=== PATIENT | female | born 1965 | race African-American/Black ===

== ENCOUNTER 2016-08-13 10:31 | Emergency (ER) | payer OTHER ==
[2016-08-13 10:39] VITALS: BP 130/85; PULSE 76; TEMP 98.8; BMI 37.3
[2016-08-13] MEDS ORDERED: KETOROLAC TROMETHAMINE 60 MG/2 ML VIAL IM ONE (12:42)
[2016-08-13] MEDS ORDERED: KETOROLAC TROMETHAMINE 60 MG/2 ML VIAL ONE (13:01)
--- NOTE | 2016-08-13 13:02 | PDOC ---
History of Present Illness - General Chief Complaint: Pain Stated Complaint: RT SIDE PAIN Time Seen by Provider: 08/13/16 11:59 History Source: Patient Exam Limitations: No Limitations - History of Present Illness Initial Comments: 08/13/16 12:58 50 yr female obese with c/o pain for 2 months to right lower back radiates across to flank worse with movement Pt denies fever, no urination or constipation complaints. Pt denies nvd. Pt denies trauma, has seen her PMD in the past for same told it was a muscle spasm. Pt states advil does not help the pain . Pain Location: reports: back Modifying Factors: improves with: None Loss of Consciousness: no loss of consciousness Associated Symptoms (Fall): denies symptoms Past History - Past Medical History Allergies/Adverse Reactions: Allergies Allergy/AdvReac Type Severity Reaction Status Date / Time No Known Allergies Allergy Verified 05/07/16 19:36 Home Medications: Ambulatory Orders Gabapentin [Neurontin] 300 mg PO BID 02/14/16 Meloxicam [Mobic] 15 mg PO DAILY 02/14/16 Ibuprofen [Motrin -] 600 mg PO QID PRN #30 tablet 05/08/16 Cyclobenzaprine HCl [Flexeril -] 10 mg PO TID PRN #12 tablet 08/13/16 Anemia: No Asthma: No Cancer: No Cardiac Disorders: No CVA: No COPD: No Other medical history: left sciatica , obesity - Surgical History Cholecystectomy: Yes Orthopedic Surgery: Yes (herniated discs with disectomy) - Immunization History Immunization Up to Date: Yes - Psycho/Social/Smoking Cessation Hx Anxiety: No Suicidal Ideation: No Smoking Status: No Smoking History: Never smoked Have you smoked in the past 12 months: No Number of Cigarettes Smoked Daily: 0 Information on smoking cessation initiated: No Hx Alcohol Use: No Drug/Substance Use Hx: No Substance Use Type: None Trauma Specific PMHX - Complaint Specific PMHX Arthritis: No Back Injury: Yes (years ago) Neck Injury: No Hx Sacro Iliac Joint Dysfunction: No Review of Systems - Review of Systems Able to Perform ROS?: Yes Is the patient limited Yi proficient: No Constitutional: No: Symptoms Reported HEENTM: No: Symptoms Reported Respiratory: No: Symptoms reported Cardiac (ROS): No: Symptoms Reported ABD/GI: No: Symptoms Reported : No: Symptoms Reported Musculoskeletal: Yes: Symptoms Reported, Back Pain *Physical Exam - Vital Signs Last Vital Signs Temp Pulse Resp BP Pulse Ox 98.8 F 76 20 130/85 98 08/13/16 10:33 08/13/16 10:33 08/13/16 10:33 08/13/16 10:33 08/13/16 10:33 - Physical Exam General Appearance: Yes: Nourished, Appropriately Dressed HEENT: positive: EOMI, EL, Normal ENT Inspection, TMs Normal, Pharynx Normal Neck: positive: Supple. negative: Tender Respiratory/Chest: positive: Lungs Clear, Normal Breath Sounds. negative: Chest Tender Cardiovascular: positive: Regular Rhythm, Regular Rate Gastrointestinal/Abdominal: positive: Normal Bowel Sounds, Soft. negative: Tender Musculoskeletal: positive: Normal Inspection, Decreased Range of Motion (pain reproduced with bending forward ), Vertebral Tenderness (lumbar spine ). negative: CVA Tenderness, CVA Tenderness (R), CVA Tenderness (L), Muscle Spasm Extremity: positive: Normal Capillary Refill, Normal Inspection ED Treatment Course - RADIOLOGY Radiology Studies Ordered: Category Date Time Status SPINE-LUMBAR ONLY [RAD] Stat Radiology 08/13/16 12:16 Taken SPINE-THORACIC [RAD] Stat Radiology 08/13/16 12:16 Taken Medical Decision Making - Medical Decision Making 08/13/16 14:29 cc: 1-2 months pain to right side low back to flank no nvd no urine or bowel dysfuntion pt has menses started today pt has seen [facility] states pain worse with moving 08/13/16 16:46 pt states pain has improved after toradol. Pt walking with steady gait no distress. pt will f/u with her PMD as discussed. *DC/Admit/Observation/Transfer Diagnosis at time of Disposition: Back pain with radiation - Discharge Dispostion Disposition: HOME Condition at time of disposition: Good - Prescriptions Prescriptions: Cyclobenzaprine HCl [Flexeril -] 10 mg PO TID PRN #12 tablet PRN Reason: Muscle Spasms - Referrals Referrals: Aramis Olmos MD [Primary Care Provider] - - Patient Instructions Additional Instructions: follow with your medical doctor next week for follow up take your Mobic for pain take flexeril for any spasm do not drive while taking flexeril or drink any alcohol apply a warm heating pad to the right side of back every 3hrs for 20 minutes return to ER for any worsening symptoms.
[2016-08-13 14:03] LABS: URINE APPEARANCE SLCLOUDY; URINE BILIRUBIN NEGATIVE (NEGATIVE); URINE COLOR YELLOW; URINE GLUCOSE (UA) NEGATIVE (NEGATIVE); URINE KETONE NEGATIVE (NEGATIVE); URINE LEUK ESTERASE NEGATIVE (NEGATIVE); URINE NITRITE NEGATIVE (NEGATIVE); URINE UROBILINOGEN NEGATIVE E.U./dl (0.2-1.0)
[2016-08-13 14:12] LABS: URINE BLOOD 3+ (NEGATIVE); URINE PROTEIN 1+ (NEGATIVE)
[2016-08-13 14:17] LABS: URINE MUCUS MANY; URINE RBC 114 /hpf (0-3); URINE WBC 6 /hpf (3-5)
== END 2016-08-13 14:36 | disposition home or self-care (01) ==
LOC: JERFT 10:31
PROC: 3E0233Z Introduction of Anti-inflammatory into Muscle, Percutaneous Approach (ICD-10-PCS; principal; 2016-08-13)
DX: M54.89 Other dorsalgia (principal)
CPT/HCPCS: 72070-TC; 72100-TC; 81003; 81015; 96372; 99281-25

== ENCOUNTER 2016-11-02 08:34 | Emergency (ER) | payer OTHER ==
[2016-11-02 08:49] VITALS: BP 108/78; PULSE 96; TEMP 98.3; BMI 37.3
[2016-11-02] MEDS ORDERED: IBUPROFEN 600 MG TABLET (FP) PO ONE ×2 (09:13→09:18)
--- NOTE | 2016-11-02 09:20 | PDOC ---
History of Present Illness - General Chief Complaint: Cold Symptoms Stated Complaint: HEADACHE, CHILLS, BACK PAIN Time Seen by Provider: 11/02/16 08:59 History Source: Patient Exam Limitations: No Limitations - History of Present Illness Initial Comments: 11/02/16 09:17 51 yr female with c/o "body aches" nasal congestion and headache for 3 days. Pt states her daughter is sick at home with cold symptoms. Pt denies fever, no abd pain or diarrhea. Pt has some urinary frequency. Pt also c/o left lower back to leg pain, this is chronic pt states. 11/02/16 09:21 Associated Symptoms: denies: denies symptoms, cough Past History - Past Medical History Allergies/Adverse Reactions: Allergies Allergy/AdvReac Type Severity Reaction Status Date / Time No Known Allergies Allergy Verified 11/02/16 08:45 Home Medications: Ambulatory Orders Cephalexin [Keflex] 500 mg PO BID #6 capsule 11/02/16 Anemia: No Asthma: No Cancer: No Cardiac Disorders: No CVA: No COPD: No Other medical history: none - Surgical History Cholecystectomy: Yes Orthopedic Surgery: Yes (herniated discs with disectomy) - Immunization History Immunization Up to Date: Yes - Psycho/Social/Smoking Cessation Hx Anxiety: No Suicidal Ideation: No Smoking Status: No Smoking History: Never smoked Have you smoked in the past 12 months: No Number of Cigarettes Smoked Daily: 0 Information on smoking cessation initiated: No Hx Alcohol Use: No Drug/Substance Use Hx: No Substance Use Type: None Review of Systems - Review of Systems Able to Perform ROS?: Yes Is the patient limited Chadian proficient: No Constitutional: No: Symptoms Reported HEENTM: Yes: Nose Congestion Respiratory: No: Symptoms reported Cardiac (ROS): No: Symptoms Reported ABD/GI: No: Symptoms Reported : Yes: Other (frequency ). No: Symptoms Reported Musculoskeletal: Yes: Back Pain Integumentary: No: Symptoms Reported Neurological: No: Symptoms reported *Physical Exam - Vital Signs Last Vital Signs Temp Pulse Resp BP Pulse Ox 98.3 F 96 H 18 108/78 99 11/02/16 08:46 11/02/16 08:46 11/02/16 08:46 11/02/16 08:46 11/02/16 08:46 - Physical Exam General Appearance: Yes: Nourished, Appropriately Dressed HEENT: positive: EOMI, EL, Normal ENT Inspection, TMs Normal, Pharynx Normal Neck: positive: Supple. negative: Tender Respiratory/Chest: positive: Lungs Clear, Normal Breath Sounds. negative: Chest Tender Cardiovascular: positive: Regular Rhythm, Regular Rate Gastrointestinal/Abdominal: positive: Normal Bowel Sounds, Soft Musculoskeletal: positive: Normal Inspection Extremity: positive: Normal Capillary Refill, Normal Inspection, Normal Range of Motion. negative: Tender Integumentary: positive: Normal Color, Dry, Warm Neurologic: positive: Fully Oriented, Alert, Normal Mood/Affect, Normal Response , Motor Strength 5/5 Medical Decision Making - Medical Decision Making 11/02/16 09:23 cc: body aches, headache nasal congestion, chronic back and leg pain no meds taken today will r/o flu motrin for pain r/o UTI vitals are stable pt is non toxic *DC/Admit/Observation/Transfer Diagnosis at time of Disposition: Urinary tract infection Qualifiers: Urinary tract infection type: acute cystitis Hematuria presence: without hematuria Qualified Code(s): N30.00 - Acute cystitis without hematuria - Discharge Dispostion Disposition: HOME Condition at time of disposition: Good - Prescriptions Prescriptions: Cephalexin [Keflex] 500 mg PO BID #6 capsule - Referrals Referrals: Aramis Olmos MD [Primary Care Provider] - - Patient Instructions Additional Instructions: drink at least 1-2 liters of water a day increase your vitamin C and zinc to boost immune system (over the counter Roya C or regular vitamins) take the antibiotics for urine infection as prescribed take motrin (ibuprofen, advil ) for any pain or fever follow with your doctor for follow up in 5-7 days if not feeling better return to ER for any worsening symptoms
[2016-11-02 09:58] LABS: URINE APPEARANCE SLCLOUDY; URINE BILIRUBIN NEGATIVE (NEGATIVE); URINE BLOOD NEGATIVE (NEGATIVE); URINE COLOR LTYELLOW; URINE GLUCOSE (UA) NEGATIVE (NEGATIVE); URINE KETONE NEGATIVE (NEGATIVE); URINE NITRITE NEGATIVE (NEGATIVE); URINE PROTEIN NEGATIVE (NEGATIVE); URINE UROBILINOGEN NEGATIVE E.U./dl (0.2-1.0)
[2016-11-02 10:02] LABS: URINE LEUK ESTERASE 3+ (NEGATIVE)
[2016-11-02 10:15] LABS: URINE MUCUS RARE; URINE RBC 12 /hpf (0-3); URINE WBC 1 /hpf (3-5)
== END 2016-11-02 10:26 | disposition home or self-care (01) ==
LOC: JERFT 08:34
DX: N30.00 Acute cystitis without hematuria (principal)
CPT/HCPCS: 81003; 81015; 87804; 99281-25

== ENCOUNTER 2017-02-26 18:42 | Emergency (ER) | payer OTHER ==
[2017-02-26 19:22] VITALS: BP 124/74; PULSE 97; TEMP 98.6; BMI 37.3
[2017-02-26] MEDS ORDERED: KETOROLAC TROMETHAMINE 60 MG/2 ML VIAL ONE (19:54)
--- NOTE | 2017-02-26 19:59 | PDOC ---
History of Present Illness - General Chief Complaint: Pain Stated Complaint: RT KNEE PAIN Time Seen by Provider: 02/26/17 19:32 History Source: Patient Exam Limitations: No Limitations - History of Present Illness Initial Comments: 02/26/17 19:53 complaints of right knee pain that's progressively worsening over 1 week. States has chronic back pain with sciatica and nerve involvement of left leg. States has been limping for many many years. States right knee had onset of pain with some arthritic-type changes over the past few weeks but this week has progressively become worse. Denies any exercise changes, trauma, any shoewear changes. Is in pain management with Dr. Crocekr takes gabapentin and has Percocet as needed but has not taken any medication for relief of this pain. Denies fever , swelling redness or other illness 02/26/17 21:46 02/26/17 21:48 Occurred: reports: just prior to arrival Severity: reports: mild Pain Location: reports: lower extremity (right knee ) Method of Injury: Yes: unknown Modifying Factors: improves with: None Loss of Consciousness: no loss of consciousness Associated Symptoms (Fall): denies symptoms Past History - Travel Traveled outside of the country in the last 30 days: No Close contact w/someone who was outside of country & ill: No - Past Medical History Allergies/Adverse Reactions: Allergies Allergy/AdvReac Type Severity Reaction Status Date / Time No Known Allergies Allergy Verified 02/26/17 19:22 Home Medications: Ambulatory Orders Gabapentin 300 mg PO BID 02/26/17 Naproxen [Naprosyn -] 500 mg PO BID #20 tablet 02/26/17 Anemia: No Asthma: No Cancer: No Cardiac Disorders: No CVA: No COPD: No - Surgical History Cholecystectomy: Yes Orthopedic Surgery: Yes (herniated discs with disectomy) - Immunization History Immunization Up to Date: Yes - Psycho/Social/Smoking Cessation Hx Anxiety: No Suicidal Ideation: No Smoking Status: No Smoking History: Never smoked Have you smoked in the past 12 months: No Number of Cigarettes Smoked Daily: 0 Hx Alcohol Use: No Drug/Substance Use Hx: No Substance Use Type: None Trauma Specific PMHX - Complaint Specific PMHX Arthritis: No Back Injury: Yes (years ago) Neck Injury: No Hx Sacro Iliac Joint Dysfunction: No Review of Systems - Review of Systems Able to Perform ROS?: Yes Is the patient limited Vietnamese proficient: Yes Constitutional: Yes: Symptoms Reported, See HPI. No: Fever, Malaise HEENTM: Yes: See HPI. No: Symptoms Reported Musculoskeletal: Yes: Symptoms Reported, See HPI, Joint Pain, Joint Swelling Integumentary: Yes: Symptoms Reported, See HPI Neurological: No: Symptoms reported All Other Systems: Reviewed and Negative *Physical Exam - Vital Signs Last Vital Signs Temp Pulse Resp BP Pulse Ox 98.6 F 97 H 18 124/74 99 02/26/17 19:19 02/26/17 19:19 02/26/17 19:19 02/26/17 19:19 02/26/17 19:19 - Physical Exam General Appearance: Yes: Nourished, Appropriately Dressed, Apparent Distress HEENT: positive: EL, Normal ENT Inspection, TMs Normal, Pharynx Normal Neck: positive: Supple. negative: Tender Respiratory/Chest: positive: Lungs Clear Extremity: positive: Normal Capillary Refill, Normal Inspection. negative: Normal Range of Motion (limited range of motion with some tenderness produced with severe flexion. Has no true medial or lateral instability or tenderness, some mild posterior fossa tenderness. Unable to examine anterior drawer sign is patient is guarding. 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 Patient encouraged to use knee immobilizer, elevate and ice, use NSAIDs for anti-inflammation and pain relief and follow-up with orthopedist first thing next week for further evaluation and possible other testing. *DC/Admit/Observation/Transfer Diagnosis at time of Disposition: Strain of right knee Qualifiers: Encounter type: initial encounter Qualified Code(s): S86.911A - Strain of unspecified muscle(s) and tendon(s) at lower leg level, right leg, initial encounter - Discharge Dispostion Disposition: HOME Condition at time of disposition: Stable Admit: No - Prescriptions Prescriptions: Naproxen [Naprosyn -] 500 mg PO BID #20 tablet - Referrals Referrals: Aramis Olmos MD [Primary Care Provider] - Dariusz Viera MD [Staff Physician] - - Patient Instructions Printed Discharge Instructions: DI for Knee Sprain Additional Instructions: Rest, ice to area on and off for 15 minutes 4-6 times a day Avoid heavy lifting or exercise until pain and swelling is resolved or until further directed Keep area highly elevated to reduce swelling Use splints/Jose Juan wrap as directed Followup with orthopedist in one to 2 days if not improving, if significantly improved may wait one week for followup with orthopedist May use ibuprofen 2-200 mg tablets every 6 hours as needed for pain - Post Discharge Activity Work/School Note: Back to Work
== END 2017-02-26 20:09 | disposition home or self-care (01) ==
LOC: JER 18:42 → JERFT 18:42
PROC: 2W3QXYZ Immobilization of Right Lower Leg using Other Device (ICD-10-PCS; principal; 2017-02-26)
DX: S86.911A Strain of unspecified muscle(s) and tendon(s) at lower leg level, right leg, initial encounter (principal); X58.XXXA Exposure to other specified factors, initial encounter; Y93.89 Activity, other specified; Y92.89 Other specified places as the place of occurrence of the external cause
CPT/HCPCS: 29530; 99281-25

== ENCOUNTER 2019-02-20 15:11 | Emergency (ER) | payer SELFPAY ==
--- NOTE | 2019-02-20 15:23 | PDOC ---
Rapid Medical Evaluation Medical Evaluation: Allergies Allergy/AdvReac Type Severity Reaction Status Date / Time No Known Allergies Allergy Verified 02/26/17 19:22 02/20/19 15:13 I have performed a brief in-person evaluation of this patient. The patient presents with a chief complaint of:Lower back pain radiating to LLE , h/o herniated discs to LS spine, sciatica, s/p surgery in 2001 at [facility], f/u pain management and on oxycodone but no longer have meds. Recently moved from [place] and has not see her pain doc in [place] for several years Pertinent physical exam findings:unremarkable I have ordered the following:nothing The patient will proceed to the ED for further evaluation. Discharge Disposition - Diagnosis Low back pain Qualifiers: Chronicity: chronic Back pain laterality: unspecified Sciatica presence: with sciatica Sciatica laterality: sciatica of left side Qualified Code(s): M54.42 - Lumbago with sciatica, left side; G89.29 - Other chronic pain - Referrals - Patient Instructions - Post Discharge Activity
[2019-02-20 15:25] VITALS: BP 104/69; PULSE 74; TEMP 98.4; BMI 37.3
[2019-02-20] MEDS ORDERED: KETOROLAC TROMETHAMINE 60 MG/2 ML VIAL IM ONE (16:05)
--- NOTE | 2019-02-20 16:11 | PDOC ---
History of Present Illness - General Chief Complaint: Pain, Acute Stated Complaint: PAIN Time Seen by Provider: 02/20/19 15:17 History Source: Patient Exam Limitations: No Limitations - History of Present Illness Initial Comments: 02/20/19 16:05 CHIEF COMPLAINT: Lower back pain HISTORY OF PRESENT ILLNESS: 53-year-old woman past medical history of lumbar radiculopathy presents emergency department for evaluation of lower back pain radiating down the left posterior lower leg. Patient reports she has ongoing issues with sciatica and was under pain management in [place]. Patient reports prior to moving to [place] she was seen by Dr. Mcnamara of pain management. Patient called Dr. Mcnamara's office today to reestablish care. Patient denies any numbness or tingling to lower extremities, saddle anesthesia, urinary retention , incontinence of bladder or bowel, foot drop, history of IV drug use or cancer. REVIEW OF SYSTEMS: GENERAL: Afebrile, denies any weakness RESPIRATORY: No cough, wheezing, or hemoptysis. CARDIAC: No chest pain or shortness of breath MUSCULOSKELETAL: Pain to generalized lower back. No point tenderness. Pain worse on left compared to right. SKIN : No erythema, no bruising, no deformity. GI/: Denies any abdominal pain, no urinary difficulty, incontinence or urinary retention. RECTAL: Denies any difficulty this A.m. NEUROLOGICAL: Denies any numbness or tingling. No neurosensory deficits. PHYSICAL EXAM: GENERAL: The patient is awake, alert, and fully oriented, in no acute distress. RESPIRATORY: Lungs clear bilaterally, no rhonchi wheezes or crackles CARDIAC: S1-S2 audible, no murmur rub or gallop MUSCULOSKELETAL: Pain to generalized lower back, nonradiating, no tingling or sensory deficit. Less than 2 second cap refill, +2 pedal pulses. No spinal point tenderness. Normal reflexive and no deficits to sensation or strength. GI/: Abdomen soft, nontender, nondistended. No rebound tenderness. No masses palpable. RECTAL: Deferred patient with no neurological findings SKIN: Warm, Dry, normal turgor, no erythema, no edema no bruising. Past History - Past Medical History Allergies/Adverse Reactions: Allergies Allergy/AdvReac Type Severity Reaction Status Date / Time No Known Allergies Allergy Verified 02/20/19 15:21 Home Medications: Ambulatory Orders Gabapentin 300 mg PO BID 02/26/17 Naproxen [Naprosyn -] 500 mg PO BID #20 tablet 02/26/17 Tramadol HCl 50 mg PO BID PRN #14 tablet MDD 2 02/20/19 Anemia: No Asthma: No Cancer: No Cardiac Disorders: No CVA: No COPD: No - Surgical History Cholecystectomy: Yes Orthopedic Surgery: Yes (herniated discs with disectomy) - Immunization History Immunization Up to Date: Yes - Suicide/Smoking/Psychosocial Hx Smoking Status: No Smoking History: Never smoked Have you smoked in the past 12 months: No Number of Cigarettes Smoked Daily: 0 Information on smoking cessation initiated: No Hx Alcohol Use: No Drug/Substance Use Hx: No Substance Use Type: None Trauma Specific PMHX - Complaint Specific PMHX Arthritis: No Back Injury: Yes (years ago) Neck Injury: No Hx Sacro Iliac Joint Dysfunction: No *Physical Exam - Vital Signs Last Vital Signs Temp Pulse Resp BP Pulse Ox 98.4 F 74 16 104/69 98 02/20/19 15:21 02/20/19 15:21 02/20/19 15:21 02/20/19 15:21 02/20/19 15:21 Medical Decision Making - Medical Decision Making 02/20/19 16:10 A/P: 53-year-old woman with lower back pain with sciatica to the left side I-stop performed as follows: Patient Name: FELIX MCDONALD Date: 1965 Address: [place] [address] Sex: Female Rx Written Rx Dispensed Drug Strength Quantity Days Supply Prescriber Name 01/10/2018 01/10/2018 TRAMADOL HCL 50 MG TABLET 14.0 7 MD MARLA, [facility] 01/17/2018 01/17/2018 TRAMADOL HCL 50 MG TABLET 42.0 21 MD MARLA, [facility] 02/23/2018 02/23/2018 TRAMADOL HCL 50 MG TABLET 42.0 21 MD MARLA, [facility] 03/23/2018 03/23/2018 TRAMADOL HCL 50 MG TABLET 42.0 21 MD MARLA, [facility] 04/21/2018 04/21/2018 TRAMADOL HCL 50 MG TABLET 42.0 21 MD MARLA, [facility] 05/17/2018 05/17/2018 TRAMADOL HCL 50 MG TABLET 42.0 21 MD MARLA, [facility] 05/24/2018 05/24/2018 OXYCODONE-ACETAMINOPHEN 5-325 16.0 4 MD TAMMY, MELINDA 05/26/2018 05/26/2018 DIAZEPAM 10 MG TABLET 2.0 1 MD MARLA, [facility] 06/08/2018 06/08/2018 TRAMADOL HCL 50 MG TABLET 42.0 21 MD MARLA, [facility] 06/08/2018 06/10/2018 MORPHINE SULF ER 15 MG TABLET 42.0 21 MD MARLA, [facility] 06/27/2018 06/28/2018 MORPHINE SULF ER 15 MG TABLET 42.0 21 MD MARLA, [facility] 06/27/2018 06/28/2018 TRAMADOL HCL 50 MG TABLET 42.0 21 MD MARLA, [facility] 07/18/2018 07/21/2018 MORPHINE SULF ER 15 MG TABLET 42.0 21 MD MARLA, [facility] 07/18/2018 07/21/2018 TRAMADOL HCL 50 MG TABLET 42.0 21 MD MARLA, [facility] 10/09/2018 10/09/2018 TRAMADOL HCL 50 MG TABLET 42.0 21 MD MARLA, [facility] 10/30/2018 11/01/2018 TRAMADOL HCL 50 MG TABLET 42.0 21 MD MARLA, [facility] 11/13/2018 11/18/2018 TRAMADOL HCL 50 MG TABLET 42.0 21 MD MARLA, [facility] 12/11/2018 12/11/2018 HYDROCODONE-ACETAMIN 7.5-325 28.0 14 MD MARLA, [facility] 01/03/2019 01/03/2019 OXYCODON-ACETAMINOPHEN 7.5-325 42.0 14 MD MARLA, [facility] 01/25/2019 01/26/2019 OXYCODON-ACETAMINOPHEN 7.5-325 63.0 21 MD MARLA, [facility] Toradol 60 mg IM now Discharge home with prescription for tramadol and to follow-up with pain management. *DC/Admit/Observation/Transfer Diagnosis at time of Disposition: Low back pain Qualifiers: Chronicity: chronic Back pain laterality: unspecified Sciatica presence: with sciatica Sciatica laterality: sciatica of left side Qualified Code(s): M54.42 - Lumbago with sciatica, left side - Discharge Dispostion Disposition: HOME Condition at time of disposition: Improved Decision to Admit order: No - Prescriptions Prescriptions: Tramadol HCl 50 mg PO BID PRN #14 tablet MDD 2 PRN Reason: Back Pain - Referrals Referrals: Aramis Olmos MD [Primary Care Provider] - - Patient Instructions Additional Instructions: Take Tylenol or Aleve as needed for pain. Follow manufacturers instructions for appropriate dosage. Tramadol 50 mg twice a day as needed for severe pain. Warm moist heat applied to your back may help alleviate pain. Return to emergency department for discoloration of the foot, numbness or tingling to the foot, worsening pain, or any other concerns. Thank you very much for choosing us to provide your emergent healthcare needs. - Post Discharge Activity
[2019-02-20] MEDS ORDERED: KETOROLAC TROMETHAMINE 60 MG/2 ML VIAL ONE (16:13)
== END 2019-02-20 16:25 | disposition home or self-care (01) ==
LOC: JERFT 15:11
PROC: 3E0233Z Introduction of Anti-inflammatory into Muscle, Percutaneous Approach (ICD-10-PCS; principal; 2019-02-20)
DX: M54.42 Lumbago with sciatica, left side (principal); G89.29 Other chronic pain
CPT/HCPCS: 99281-25

== ENCOUNTER 2019-05-06 16:12 | Emergency (ER) | payer OTHER ==
[2019-05-06 16:34] VITALS: BP 123/79; PULSE 84; TEMP 98.7; BMI 37.3
[2019-05-06] MEDS ORDERED: METOCLOPRAMIDE HCL INJECTION 10 MG/2 ML VIAL IVPUSH ONE (17:00)
[2019-05-06] MEDS ORDERED: SODIUM CHLORIDE 1,000 ML IV STA (17:00)
[2019-05-06] MEDS ORDERED: ACETAMINOPHEN 1000 MG/100 ML VIAL (NON FORMULARY) IVPB ONE (17:00)
[2019-05-06] MEDS ORDERED: METOCLOPRAMIDE HCL INJECTION 10 MG/2 ML VIAL ONE (17:35)
[2019-05-06] MEDS ORDERED: LIDOCAINE 5% TOPICAL PATCH TP ONE (17:35)
[2019-05-06] MEDS ORDERED: ACETAMINOPHEN INJECTION 100 ML IVPB ONE (17:35)
[2019-05-06] MEDS ORDERED: LIDOCAINE 5% TOPICAL PATCH ONE (17:36)
--- NOTE | 2019-05-06 17:44 | PDOC ---
History of Present Illness - General Chief Complaint: Headache Stated Complaint: NAUSEA HEADACHE Time Seen by Provider: 05/06/19 16:50 History Source: Patient Exam Limitations: No Limitations - History of Present Illness Initial Comments: Pt is a 53 yo F, with PMH of herniated disc and L-sided sciatica (L4-L5 laminectomy), who is presenting via car from home with complaints of headache, nausea, vomiting, light-headedness, and diarrhea x3 days. 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 Pt has no history of migraines. PT states the headache is frontal and has been persistent despite home tylenol and motrin (last dose was last night), and is throbbing. The headache onset was gradual and has not worsened. Pt is having ~2-3 episodes of n/v/d per day, but did not have any episodes today and was able to tolerate some PO food and fluid intake today. Pt denies any recent fevers/chills, vision changes, syncope, chest pain, palpitations, SOB, abdominal pain, urinary symptoms, constipation, or leg swelling. Allergies: NKDA Social: Pt denies any cigarette, alcohol, or drug use. Pt denies any recent travel or sick contacts. Surgical: cholecystectomy, laminectomy L4-L5 (2009). Family: no relevant history. 05/06/19 18:15 Past History - Travel Traveled outside of the country in the last 30 days: No Close contact w/someone who was outside of country & ill: No - Past Medical History Allergies/Adverse Reactions: Allergies Allergy/AdvReac Type Severity Reaction Status Date / Time No Known Allergies Allergy Verified 05/06/19 16:34 Home Medications: Ambulatory Orders Gabapentin 300 mg PO BID 02/26/17 Naproxen [Naprosyn -] 500 mg PO BID #20 tablet 02/26/17 Tramadol HCl 50 mg PO BID PRN #14 tablet MDD 2 02/20/19 Ondansetron [Zofran *Odt*] 4 mg SL BID PRN #10 od.tablet 05/06/19 Anemia: No Asthma: No Cancer: No Cardiac Disorders: No CVA: No COPD: No - Surgical History Cholecystectomy: Yes Orthopedic Surgery: Yes (herniated discs with disectomy) - Immunization History Immunization Up to Date: Yes - Psycho Social/Smoking Cessation Hx Smoking Status: No Smoking History: Never smoked Have you smoked in the past 12 months: No Number of Cigarettes Smoked Daily: 0 Hx Alcohol Use: No Drug/Substance Use Hx: No Substance Use Type: None Neuro Specific PMHX - Complaint Specific PMHX Herniated Disk: Yes Laminectomy: Yes Migraine: No Neuropathy: No TIA: No Review of Systems - Review of Systems Able to Perform ROS?: Yes Is the patient limited Czech proficient: No Constitutional: Yes: Weight Stable. No: Chills, Diaphoresis, Fever, Loss of Appetite, Malaise, Weakness HEENTM: No: Recent change in vision, Nose Congestion, Throat Pain, Throat Swelling, Difficulty Swallowing Respiratory: No: Cough, Orthopnea, Shortness of Breath Cardiac (ROS): Yes: Lightheadedness. No: Chest Pain, Edema, Irregular Heart Rate, Palpitations, Syncope, Chest Tightness ABD/GI: Yes: Diarrhea, Nausea, Poor Appetite, Poor Fluid Intake, Vomiting. No: Abdominal Distended, Constipated, Abdominal cramping : No: Burning, Dysuria, Frequency, Flank Pain, Pain, Urgency Musculoskeletal: Yes: See HPI (chronic L-sided LE sciatica at pts baseline). No : Back Pain, Joint Pain, Muscle Pain, Muscle Weakness, Neck Pain (no neck pain, no neck stiffness, no light sensitivity) Integumentary: No: Rash Neurological: Yes: Headache. No: Numbness, Paresthesia, Tingling, Weakness, Unsteady Gait, Ataxia, Dizziness Psychiatric: No: Sleep Pattern Change, Change in Appetite Endocrine: No: Increased Urine, Change in Weight Hematologic/Lymphatic: No: Anemia, Blood Clots, Easy Bleeding, Easy Bruising All Other Systems: Reviewed and Negative *Physical Exam - Vital Signs Last Vital Signs Temp Pulse Resp BP Pulse Ox 98.7 F 84 18 123/79 99 05/06/19 16:32 05/06/19 16:32 05/06/19 16:32 05/06/19 16:32 05/06/19 16:32 - Physical Exam Comments: Vitals stable, pt afebrile. Pt in NAD, obese body habitus. Pt alert and oriented x3. mill dresser generally intact, muscular strength and sensation intact. Cerebellar exam WNL. No midline spinal tenderness, step-offs, or crepitus. No neck stiffness. Straight-leg test negative. Head normocephalic, atraumatic. Eyes PERRLA, EOMI. Oropharynx without erythema or exudates, no LAD b/l. No nasal congestion. Hearing intact. Clear heart sounds, S1/S2, no JVD, b/l pedal edema, or heart murmur. Clear lung sounds, no respiratory distress, wheezes, crackles, or accessory muscle use. Mild epigastric TTP. No CVA tenderness to palpation, no rebound, no guarding. Abdomen soft, protuberant, and with normoactive bowel sounds. Skin without jaundice or rash. 05/06/19 18:25 ED Treatment Course - LABORATORY CBC & Chemistry Diagram: 05/06/19 15:51 05/06/19 15:51 Medical Decision Making - Medical Decision Making Pt was seen at bedside, also will be seen by attending Dr. Zapata. Pt presenting with headache with n/v/d, likely dehydration, migraine, gastroenteritis. No blood in vomit or stool, and n/v/d has stopped today. Pt tolerating some PO intake. Neuro exam showed no FNDs to suggest SAH, no neck stiffness or fever to suggest meningitis. Provided 10 mg IV reglan, 25 mg IV benadryl, 1 L IV NS, and lidocaine patch for improvement of headache and nausea. Will continue to reassess pt and monitor for symptomatic improvement. 05/06/19 18:26 CBC, CMP, and Mg WNL. 05/06/19 18:28 Pt states discomfort has improved after interventions. Pt tolerated PO intake in ED. Sent additional zofran ODT to pts pharmacy. Pt can f/u with PCP. Strict return precautions provided with pt understanding. 05/06/19 18:35 Discharge - Discharge Information Problems reviewed: Yes Clinical Impression/Diagnosis: Gastroenteritis Headache Qualifiers: Headache type: unspecified Headache chronicity pattern: acute headache Intractability: not intractable Qualified Code(s): R51 - Headache Condition: Improved Disposition: HOME - Admission No - Additional Discharge Information Prescriptions: Ondansetron [Zofran *Odt*] 4 mg SL BID PRN #10 od.tablet PRN Reason: Nausea - Follow up/Referral Referrals: Aramis Olmos MD [Staff Physician] - - Patient Discharge Instructions Patient Printed Discharge Instructions: DI for Headache, Nausea and Vomiting- Adult Additional Instructions: You were seen in the ER today for nausea, vomiting, diarrhea, and headache. The results of your labs today were normal. Please follow-up with your primary care doctor within 1-2 days to discuss your visit and make sure your symptoms have improved. Please return to the ER if you have any worsening pain, development of fevers or chills, loss of consciousness, inability to tolerate food or fluids , or any other concerns. I have sent medications to your pharmacy. Please take these medications as prescribed. - Post Discharge Activity
[2019-05-06 17:55] LABS: BASO % 1.3 % (0-2.0); EOS % 1.6 % (0-4.5); HEMATOCRIT 37.1 % (32.4-45.2); HEMOGLOBIN 12.2 GM/dL (10.7-15.3); LYMPH % 46.7 % (8-40); MCH 28.5 pg (25.7-33.7); MCHC 32.9 g/dl (32.0-36.0); MEAN CELL VOLUME 86.8 fl (80-96); MEAN PLT VOLUME 9.3 fl (7.5-11.1); MONO % 7.7 % (3.8-10.2); NEUT % 42.7 % (42.8-82.8); PLATELET COUNT 240 K/MM3 (134-434); RBC 4.28 M/mm3 (3.60-5.2); RDW 13.9 % (11.6-15.6); WHITE BLOOD COUNT 6.9 K/mm3 (4.0-10.0)
--- NOTE | 2019-05-06 18:05 | PDOC ---
Documentation entered by Logan Barksdale SCRIBE, acting as scribe for Rosita Zapata DO. Rosita Zapata DO: This documentation has been prepared by the Apolonia douglas Nirvannie, SCRIBE, under my direction and personally reviewed by me in its entirety. I confirm that the documentation accurately reflects all work, treatment, procedures, and medical decision making performed by me. Attending Attestation - Resident Resident Name: ArdenRebeka - ED Attending Attestation I have performed the following: I have examined & evaluated the patient, The case was reviewed & discussed with the resident, I agree w/resident's findings & plan - HPI HPI: 05/06/19 18:36 The patient is a 53 year old female, with a significant past medical history of lumbar radiculopathy, who presents to the emergency department with, headache, nausea, vomiting, and diarrhea. As per patient, her symptoms onset initially as a band-like frontal headache 3 days ago which progressed to nausea with nonbloody emesis (x4 episodes) and nonbloody diarrhea. Secondary to her symptoms she notes an exacerbation of her chronic back pain (followed by pain management, recent MRI a week ago). She normally takes Percocets, Tylenol, or Motrin. She denies any urinary/bowel incontinence. She denies any acute changes in strength or sensation. She denies recent fevers, chills, or dizziness. She denies recent dysuria, frequency, urgency or hematuria. She denies recent chest pain or shortness of breath. Allergies: NKDA - Physicial Exam PE: 05/06/19 18:36 Constitutional: Awake, alert, oriented. No acute distress. Head: Normocephalic. Atraumatic Eyes: PERRL. EOMI. Conjunctivae are not pale. ENT: Mucous membranes are moist and intact. Posterior pharynx without exudates or erythema. Uvula midline. Neck: Supple. Full ROM. No lymphadenopathy. Cardiovascular: Regular rate. Regular rhythm. S1, S2 regular. Distal pulses are 2+ and symmetric. Pulmonary/Chest: No evidence of respiratory distress. Clear to auscultation bilaterally No wheezing, rales or rhonchi. Abdominal: Soft and non-distended. There is no tenderness. No rebound, guarding or rigidity. No organomegaly. No palpable masses. Good bowel sounds. Back: +Right sided back painNo CVA tenderness. Musculoskeletal: No edema. No cyanosis. No clubbing. Full range of motion in all extremities. No calf tenderness. Radial/pedal pulses are intact and 2+ bilaterally Skin: Skin is warm and dry. No petechiae. No purpura. Neurological: Alert and oriented to person, place, and time. Cranial nerves II -XII are grossly intact. Normal speech. Strength is grossly symmetric. No sensory deficits. Psychiatric: Good eye contact. Normal interaction, affect and behavior. - Medical Decision Making 05/06/19 18:02 I, Dr. Rosita Zapata, DO, attest that this document has been prepared under my direction and personally reviewed by me in its entirety. I further attest, that it accurately reflects all work, treatment, procedures and medical decision -making performed by me. a/p: 53yo female with hx of sciatica pain - follows with dr. Sneed (ortho) with diarrhea/baron, n/v since tuesday -loose stool tuesday - no blood -no recent abx -n/v yesterday - 4 episodes nbnb -pt states she normally takes tylenol or motrin for her back pain but hasn't taken it all weekend secondary to n/v -pt neuro intact -neg straight leg raise -states she ate a bologne sandwich on tuesday and then developed the diarrhea -will send labs, hydrate, ivf, reglan, benadryl, tylenol -will monitor and reassess -has tolerated po today 05/06/19 18:37 labs reviewed will po challenge zofran sent to pharmacy baron resolved stable for dc to home after po challenge
[2019-05-06 18:24] LABS: ALBUMIN 2.9 g/dl (3.4-5.0); BILIRUBIN,TOTAL 0.3 mg/dL (0.2-1); BLOOD UREA NITROGEN 12.3 mg/dL (7-18); CALCIUM 8.3 mg/dL (8.5-10.1); CREATININE 0.8 mg/dL (0.55-1.3); POTASSIUM 3.8 mmol/L (3.5-5.1); TOT PROT 6.5 g/dl (6.4-8.2)
[2019-05-06] MEDS ORDERED: LIDOCAINE PATCH REMOVAL MC SCH (22:00)
== END 2019-05-06 19:02 | disposition home or self-care (01) ==
LOC: JER 16:12
PROC: 3E0337Z Introduction of Electrolytic and Water Balance Substance into Peripheral Vein, Percutaneous Approach (ICD-10-PCS; principal; 2019-05-06)
PROC: 3E033NZ Introduction of Analgesics, Hypnotics, Sedatives into Peripheral Vein, Percutaneous Approach (ICD-10-PCS; 2019-05-06)
PROC: 3E033GC Introduction of Other Therapeutic Substance into Peripheral Vein, Percutaneous Approach (ICD-10-PCS; 2019-05-06)
PROC: 3E033GC Introduction of Other Therapeutic Substance into Peripheral Vein, Percutaneous Approach (ICD-10-PCS; 2019-05-06)
DX: K52.9 Noninfective gastroenteritis and colitis, unspecified (principal); R51 Headache
CPT/HCPCS: 36415; 80053; 83735; 85025; 96361; 96374; 96375; 99283-25; J0131; J7030

== ENCOUNTER 2019-06-12 21:12 | Emergency (ER) | payer OTHER ==
[2019-06-12] MEDS ORDERED: KETOROLAC TROMETHAMINE 60 MG/2 ML VIAL IM ONE (21:33)
--- NOTE | 2019-06-12 21:33 | PDOC ---
Rapid Medical Evaluation Time Seen by Provider: 06/12/19 21:17 Medical Evaluation: Allergies Allergy/AdvReac Type Severity Reaction Status Date / Time No Known Allergies Allergy Verified 05/06/19 16:34 06/12/19 21:30 CC: nasal congestion and right sided neck pain x1 week PE: tightness over right SCM. Orders: toradol The patient will proceed to the ER for continued Evaluation. Discharge Disposition - Diagnosis Acquired torticollis - Referrals - Patient Instructions - Post Discharge Activity
[2019-06-12 21:34] VITALS: BP 124/73; PULSE 80; TEMP 98.7; BMI 37.3
[2019-06-12] MEDS ORDERED: KETOROLAC TROMETHAMINE 60 MG/2 ML VIAL ONE (22:05)
--- NOTE | 2019-06-12 22:07 | PDOC ---
History of Present Illness - General Chief Complaint: Cold Symptoms Stated Complaint: COLD SYMPTOMS Time Seen by Provider: 06/12/19 21:17 - History of Present Illness Initial Comments: 06/12/19 22:04 53-year-old female with a past medical history of diabetes on metformin presents for evaluation of right-sided neck pain with right arm radicular symptoms as well as cough x1 week without systemic symptoms Past History - Past Medical History Allergies/Adverse Reactions: Allergies Allergy/AdvReac Type Severity Reaction Status Date / Time No Known Allergies Allergy Verified 05/06/19 16:34 Home Medications: Ambulatory Orders Gabapentin 300 mg PO BID 02/26/17 Naproxen [Naprosyn -] 500 mg PO BID #20 tablet 02/26/17 Tramadol HCl 50 mg PO BID PRN #14 tablet MDD 2 02/20/19 Ondansetron [Zofran *Odt*] 4 mg SL BID PRN #10 od.tablet 05/06/19 Cyclobenzaprine HCl [Flexeril 10 mg] 10 mg PO HS PRN #10 tablet 06/12/19 Ibuprofen [Motrin -] 600 mg PO TID #30 tablet 06/12/19 Anemia: No Asthma: No Cancer: No Cardiac Disorders: No CVA: No COPD: No - Surgical History Cholecystectomy: Yes Orthopedic Surgery: Yes (herniated discs with disectomy) - Immunization History Immunization Up to Date: Yes - Psycho Social/Smoking Cessation Hx Smoking Status: No Smoking History: Never smoked Have you smoked in the past 12 months: No Number of Cigarettes Smoked Daily: 0 Hx Alcohol Use: No Drug/Substance Use Hx: No Substance Use Type: None Review of Systems - Review of Systems Constitutional: No: Fever Respiratory: Yes: Cough Musculoskeletal: Yes: Neck Pain *Physical Exam - Vital Signs Last Vital Signs Temp Pulse Resp BP Pulse Ox 98.7 F 80 20 124/73 98 06/12/19 21:31 06/12/19 21:31 06/12/19 21:31 06/12/19 21:31 06/12/19 22:02 - Physical Exam Comments: 06/12/19 22:05 GENERAL: The patient is awake, alert, and fully oriented, in no acute distress. HEAD: Normal with no signs of trauma. EYES: sclera anicteric, conjunctiva clear. ENT: Ears normal NECK: Cervical spine skin color temperature normal. There is no midline tenderness. Mild right-sided paracervical musculature spasm and tenderness moderate trapezial spasm and tenderness. 5 out of 5 strength bilateral upper extremities without gross sensorimotor deficits neurovascular intact LUNGS: Breath sounds equal, clear to auscultation bilaterally. No wheezes, and no crackles. HEART: S1 and S2 without murmur, rub or gallop. ABDOMEN: Soft, nontender, normoactive bowel sounds. No guarding, no rebound. No masses. EXTREMITIES: Normal range of motion, no edema. No clubbing or cyanosis. No cords, erythema, or tenderness. NEUROLOGICAL: Cranial nerves II through XII grossly intact. Normal speech, normal gait. PSYCH: Normal mood, normal affect. SKIN: Warm, Dry, normal turgor, no rashes or lesions noted. Medical Decision Making - Medical Decision Making 06/12/19 22:05 Motrin and Flexeril for cervical radicular symptoms follow-up with neurosurgery supportive care follow-up with internal medicine for upper respiratory infection Discharge - Discharge Information Problems reviewed: Yes Clinical Impression/Diagnosis: Cervical radiculopathy, Upper respiratory infection Clinical Impression/Diagnosis: (Ruled Out): Acquired torticollis Condition: Stable Disposition: HOME - Admission No - Additional Discharge Information Prescriptions: Cyclobenzaprine HCl [Flexeril 10 mg] 10 mg PO HS PRN #10 tablet PRN Reason: Muscle Spasms Ibuprofen [Motrin -] 600 mg PO TID #30 tablet - Follow up/Referral Referrals: Aramis Olmos MD [Primary Care Provider] - Corky Simeon MD, FAANS [Staff Physician] - - Patient Discharge Instructions Patient Printed Discharge Instructions: DI for Viral Upper Respiratory Infection -- Adult Additional Instructions: Please take the muscle relaxer and anti-inflammatory as directed. Return to the emergency room for worsening symptoms. Without fail please follow-up with neurosurgery in 1 to 2 days for further evaluation and treatment options for her neck pain and internal medicine your primary care physician for further evaluation and treatment options for your upper respiratory infection. - Post Discharge Activity
== END 2019-06-12 22:12 | disposition home or self-care (01) ==
LOC: JERFT 21:12
PROC: 3E0233Z Introduction of Anti-inflammatory into Muscle, Percutaneous Approach (ICD-10-PCS; principal; 2019-06-12)
DX: M54.12 Radiculopathy, cervical region (principal); J06.9 Acute upper respiratory infection, unspecified
CPT/HCPCS: 96372; 99282-25

== ENCOUNTER 2019-10-07 08:23 | Emergency (ER) | payer OTHER ==
[2019-10-07 08:32] VITALS: BP 101/68; PULSE 67; TEMP 98.1; BMI 37.3
[2019-10-07] MEDS ORDERED: diazePAM 5 MG TABLET PO ONE (08:54)
[2019-10-07] MEDS ORDERED: KETOROLAC TROMETHAMINE 30 MG/1 ML VIAL IM ONE (08:54)
[2019-10-07] MEDS ORDERED: KETOROLAC TROMETHAMINE 30 MG/1 ML VIAL ONE (08:57)
[2019-10-07] MEDS ORDERED: diazePAM 5 MG TABLET ONE (08:57)
[2019-10-07] MEDS ORDERED: LIDOCAINE 5% TOPICAL PATCH ONE (09:03)
--- NOTE | 2019-10-07 09:16 | PDOC ---
History of Present Illness - General Chief Complaint: Pain Stated Complaint: BACK PAIN Time Seen by Provider: 10/07/19 08:43 History Source: Patient Exam Limitations: No Limitations - History of Present Illness Initial Comments: 10/07/19 09:12 54-year-old female with history of prediabetes on metformin, sciatica for approximately 15 years status post laminectomy several years ago complaining of low back pain radiating to left lower extremity x48 hours. Denies trauma, fever , urinary or bowel incontinence. Took acetaminophen at 7 PM last night with minimal relief. Follows up with pain management who has given her nerve block which helps and has had physical therapy in the past. She reports a lumbar MRI 3 months ago which showed 4 herniated disks. Has a follow-up appointment scheduled with pain management in 2 weeks. ROS: back pain PE: GENERAL: well-appearing, NAD HEAD: NCAT EYES: Pupils equal, round and reactive to light, sclera anicteric, conjunctiva clear ENT: pharynx: no erythema, no exudate, uvula midline NECK: supple CHEST: nontender RESP: clear, no w/r/r CARDIO: rrr, no m/g/r ABD: +BS, soft, nontender, non distended BACK: no midline spinal ttp, no CVAT, L4-L5 paraspinal tenderness to palpation EXTREMITIES: Normal range of motion, no edema, 5/5 strength and sensation NEUROLOGICAL: Normal speech, walking with slight limp SKIN: Warm, Dry Is this a multiple visit Asthma Patient?: No Past History - Past Medical History Allergies/Adverse Reactions: Allergies Allergy/AdvReac Type Severity Reaction Status Date / Time No Known Allergies Allergy Verified 10/07/19 08:31 Home Medications: Ambulatory Orders Gabapentin 300 mg PO BID 02/26/17 Naproxen [Naprosyn -] 500 mg PO BID #20 tablet 02/26/17 Tramadol HCl 50 mg PO BID PRN #14 tablet MDD 2 02/20/19 Ondansetron [Zofran *Odt*] 4 mg SL BID PRN #10 od.tablet 05/06/19 Cyclobenzaprine HCl [Flexeril 10 mg] 10 mg PO HS PRN #10 tablet 06/12/19 Ibuprofen [Motrin -] 600 mg PO TID #30 tablet 06/12/19 Anemia: No Asthma: No Cancer: No Cardiac Disorders: No CVA: No COPD: No Other medical history: chronic lower back pain - Surgical History Cholecystectomy: Yes Orthopedic Surgery: Yes (herniated discs with disectomy) - Immunization History Immunization Up to Date: Yes - Psycho Social/Smoking Cessation Hx Smoking Status: No Smoking History: Never smoked Have you smoked in the past 12 months: No Number of Cigarettes Smoked Daily: 0 Hx Alcohol Use: No Drug/Substance Use Hx: No Substance Use Type: None *Physical Exam - Vital Signs Last Vital Signs Temp Pulse Resp BP Pulse Ox 98.1 F 67 18 101/68 99 10/07/19 08:28 10/07/19 08:28 10/07/19 08:28 10/07/19 08:28 10/07/19 08:28 ED Treatment Course - Medications Given in the ED: ED Medications Discontinued Medications Generic Name Dose Route Start Last Admin Trade Name Mary PRN Reason Stop Dose Admin Diazepam 5 mg 10/07/19 08:54 10/07/19 08:58 Valium - PO 10/07/19 08:55 5 mg ONCE ONE Administration Ketorolac Tromethamine 30 mg 10/07/19 08:54 10/07/19 08:57 Toradol Injection - IM 10/07/19 08:55 30 mg ONCE ONE Administration Medical Decision Making - Medical Decision Making 10/07/19 09:15 54-year-old with history of sciatica presenting with low back pain radiating to left lower extremity x48 hours. Denies fever, chills, trauma, urinary or bowel incontinence. Last took acetaminophen yesterday at 7 PM. IM Toradol P.o. Valium Reassess 10/07/19 09:30 Patient feels some improvement Will discharge with instruction to follow-up with pain management this week return precautions discussed Discharge - Discharge Information Problems reviewed: Yes Clinical Impression/Diagnosis: Back pain Qualifiers: Back pain location: low back pain Chronicity: acute Back pain laterality: left Sciatica presence: with sciatica Sciatica laterality: sciatica of left side Qualified Code(s): M54.42 - Lumbago with sciatica, left side Condition: Stable Disposition: HOME - Admission No - Follow up/Referral Referrals: Nilda Olmos [Primary Care Provider] - - Patient Discharge Instructions Additional Instructions: Alternate between ibuprofen and acetaminophen every 6 hours as needed for pain Follow-up with your pain management doctor this week Return to ER if fever, weakness, inability to ambulate, urinary or bowel incontinence - Post Discharge Activity
== END 2019-10-07 09:33 | disposition home or self-care (01) ==
LOC: JER 08:23 → JERFT 08:23
PROC: 3E0233Z Introduction of Anti-inflammatory into Muscle, Percutaneous Approach (ICD-10-PCS; principal; 2019-10-07)
DX: M54.42 Lumbago with sciatica, left side (principal); R73.03 Prediabetes; Z79.84 Long term (current) use of oral hypoglycemic drugs
CPT/HCPCS: 96372; 99284-25

== ENCOUNTER 2020-05-09 11:25 | Emergency (ER) | payer OTHER ==
[2020-05-09 11:32] VITALS: BP 125/73; PULSE 68; TEMP 98.4; BMI 37.3
--- NOTE | 2020-05-09 12:31 | PDOC ---
History of Present Illness - General Chief Complaint: Pain Stated Complaint: HURT THUMB Time Seen by Provider: 05/09/20 11:57 History Source: Patient Exam Limitations: No Limitations - History of Present Illness Initial Comments: 05/09/20 12:40 54-year-old female presents to ED with complaints of right thumb pain for the past month worsened with movement. Patient also stating sometimes she has a popping sound but denies any physical injury, radiation of pain, skin discoloration or swelling to the area. Patient has not followed up with anyone nor has she take anything for discomfort. 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 Is this a multiple visit Asthma Patient?: No Timing/Duration: other Severity: mild Associated Symptoms: reports: denies symptoms Past History - Travel History Traveled outside of the country in the last 30 days: No Close contact w/someone who was outside of country & ill: No - Medical History Allergies/Adverse Reactions: Allergies Allergy/AdvReac Type Severity Reaction Status Date / Time No Known Allergies Allergy Verified 05/09/20 11:26 Home Medications: Ambulatory Orders Gabapentin 300 mg PO BID 02/26/17 Naproxen [Naprosyn -] 500 mg PO BID #20 tablet 02/26/17 Tramadol HCl 50 mg PO BID PRN #14 tablet MDD 2 02/20/19 Ondansetron [Zofran *Odt*] 4 mg SL BID PRN #10 od.tablet 05/06/19 Cyclobenzaprine HCl [Flexeril 10 mg] 10 mg PO HS PRN #10 tablet 06/12/19 Ibuprofen [Motrin -] 600 mg PO TID #30 tablet 06/12/19 Anemia: No Asthma: No Cancer: No Cardiac Disorders: No CVA: No COPD: No - Surgical History Cholecystectomy: Yes Orthopedic Surgery: Yes (herniated discs with disectomy) - Reproductive History Is Patient Now?: No - Immunization History Immunization Up to Date: Yes - Psycho-Social/Smoking History Patient Lives Alone: No Lives with/in: spouse/SO Smoking Status: No Smoking History: Never smoked Have you smoked in the past 12 months: No Number of Cigarettes Smoked Daily: 0 - Substance Abuse Hx (Audit-C & DAST Scrn) How often the patient has a drink containing alcohol: Never Score: In Men: 4 or > Positive; In Women: 3 or > Positive: 0 Screen Result (Pos requires Nsg. Audit-10AR): Negative In the last yr the pt used illegal drug/Rx for NonMed reason: No Score: Yes response is considered Positive: 0 Screen Result (Positive result requires Nsg. DAST-10): Negative Review of Systems - Review of Systems Able to Perform ROS?: No Is the patient limited Czech proficient: No Constitutional: No: Symptoms Reported Cardiac (ROS): No: Edema Musculoskeletal: Yes: Joint Pain, Muscle Pain Integumentary: No: Symptoms Reported Neurological: No: Symptoms reported, Numbness, Tingling, Weakness *Physical Exam - Vital Signs Last Vital Signs Temp Pulse Resp BP Pulse Ox 98.4 F 68 18 125/73 100 05/09/20 11:26 05/09/20 11:26 05/09/20 11:26 05/09/20 11:26 05/09/20 11:26 - Physical Exam General Appearance: Yes: Nourished, Appropriately Dressed. No: Apparent Distress HEENT: positive: EOMI Respiratory/Chest: negative: Respiratory Distress Gastrointestinal/Abdominal: negative: Distended Extremity: positive: Normal Inspection, Normal Range of Motion, Tender (to medial aspect of rt 1st digit. FROM of digit noted , no crepitus) Integumentary: positive: Normal Color, Warm, Moist Neurologic: positive: Motor Strength 5/5 (ambulatory,) ED Treatment Course - RADIOLOGY Radiology Studies Ordered: Category Date Time Status FINGER(S) LEFT [RAD] Stat Radiology 05/09/20 11:57 Ordered Medical Decision Making - Medical Decision Making 05/09/20 12:33 Complaint: Right thumb pain for the past month no physical exam: Tender medial aspect of right first digit. Full range of motion no crepitus no deformity no edema. Plan: X-ray ordered. 05/09/20 12:44 X-ray shows no deformity or acute pathology. Patient placed in metal splint for protection Patient will be given Ortho referral Discharge - Discharge Information Problems reviewed: Yes Clinical Impression/Diagnosis: Pain of right thumb Condition: Good Disposition: HOME - Follow up/Referral Referrals: Alireza Isidro MD [Staff Physician] - - Patient Discharge Instructions Patient Printed Discharge Instructions: DI for Finger Sprain Additional Instructions: Please wear metal splint during the day and remove at night Take Motrin or Tylenol for discomfort. Follow-up with referred orthopedist - Post Discharge Activity
== END 2020-05-09 14:50 | disposition home or self-care (01) ==
LOC: JER 11:25 → JERFT 11:25
DX: M79.644 Pain in right finger(s) (principal)
CPT/HCPCS: 73140-TC-LT-FY; 99284-25

== ENCOUNTER 2020-12-01 15:21 | Emergency (ER) | payer OTHER ==
[2020-12-01 15:30] VITALS: BP 134/86; PULSE 87; TEMP 97.8; BMI 38.4
== END 2020-12-01 17:25 | disposition home or self-care (01) ==
LOC: JERFT 15:21
DX: S63.601A Unspecified sprain of right thumb, initial encounter (principal)
CPT/HCPCS: 73140-TC-RT-FY; 99284-25

== ENCOUNTER 2020-12-17 15:57 | Emergency (ER) | payer OTHER ==
[2020-12-17 16:13] VITALS: BP 119/80; PULSE 90; TEMP 98.4; BMI 38.4
[2020-12-17] MEDS ORDERED: KETOROLAC TROMETHAMINE 30 MG/1 ML VIAL IM ONE (18:15)
[2020-12-17] MEDS ORDERED: KETOROLAC TROMETHAMINE 30 MG/1 ML VIAL ONE (18:16)
== END 2020-12-17 18:35 | disposition home or self-care (01) ==
LOC: JERFT 15:57
PROC: 3E0234Z Introduction of Serum, Toxoid and Vaccine into Muscle, Percutaneous Approach (ICD-10-PCS; principal; 2020-12-17)
DX: M25.562 Pain in left knee (principal); G89.29 Other chronic pain
CPT/HCPCS: 99284-25

== ENCOUNTER 2021-02-25 10:15 | Emergency (ER) | payer OTHER ==
[2021-02-25 10:24] VITALS: BP 109/69; PULSE 70; TEMP 98; BMI 38.4
== END 2021-02-25 11:36 | disposition home or self-care (01) ==
LOC: JER 10:15 → JERFT 10:15
DX: M25.562 Pain in left knee (principal)
CPT/HCPCS: 99281-25

== ENCOUNTER 2021-08-11 08:00 | Emergency (ER) | payer OTHER ==
[2021-08-11 08:25] VITALS: BP 116/81; PULSE 78; TEMP 98.1; BMI 38.4
[2021-08-12 17:09] LABS: SARS-CoV-2 NAA Detected (Not Detected)
== END 2021-08-11 08:40 | disposition home or self-care (01) ==
LOC: JER 08:00
DX: J06.9 Acute upper respiratory infection, unspecified (principal)
CPT/HCPCS: 87804; 87807; 99283-25; C9803; U0003; U0005